=== PATIENT | male | born 1965 | race Caucasian/White ===

== ENCOUNTER 2019-04-23 01:36 | Emergency (ER) | payer OTHER ==
[~2019-04-23] VITALS: Ht 162.6 cm; Wt 77.1 kg
[~2019-04-23 01:36] MED LIST: LISI10TA11 PO; METO-460 PO; OMEP40EC24 PO
[2019-04-23 01:44] VITALS: BP 148/89
--- NOTE | 2019-04-23 01:47 | NUR ---
TO [facility]Y A/W BED AMBULATORY
--- NOTE | 2019-04-23 03:30 | NUR ---
PT AMBULATED TO BED 10.
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
--- NOTE | 2019-04-23 03:54 | NUR ---
Dr. Santana examining patient.
[2019-04-23 05:34] VITALS: BP 122/72
--- NOTE | 2019-04-23 05:34 | NUR ---
Patient discharged with v/s stable. Written and verbal after care instructions given and explained. Patient verbalized understanding. Ambulatory with steady gait. All questions addressed prior to discharge. Advised to follow up with PMD.
== END 2019-04-23 05:34 | disposition home or self-care (01) ==
LOC: MED 01:36
DX: I10 Essential (primary) hypertension (principal); K21.9 Gastro-esophageal reflux disease without esophagitis; Z79.899 Other long term (current) drug therapy
CPT/HCPCS: 93005; 99283